=== PATIENT | male | born 1950 | race Caucasian/White ===

== ENCOUNTER → 2024-03-08 | Outpatient (CLI) | payer MEDICARE ==
--- NOTE | 2024-04-02 14:34 | CT ---
Patient: Collin Graves Ordering Physician: Unknown, Unknown ID: [id number] Phone, Pager: Phone: N/A Pager: N/A : 1950 Age/Gender: 73Y, M Primary Location: N/A Procedure: CT brain wo con Study Date: 03/08/2024 3:59:00 PM EXAMINATION TYPE: CT brain wo con CT DLP: 978 mGycm, Automated exposure control for dose reduction was used. DATE OF EXAM: 03/08/2024 5:18 PM COMPARISON: None. CLINICAL INDICATION: Subdural hemorrhage TECHNIQUE: Brain: Axial CT images of the brain were obtained with coronal and sagittal reformats created and rev iewed. Contrast used: None. Oral contrast used: None. FINDINGS: Brain: Extra-axial spaces: Left subdural fluid collection measuring up to 10 mm in greatest dimension. Ventricular system: Within normal limits Cerebral parenchyma: Encephalomalacia the right frontal lobe and left patel-white matter differentiati on of the right temporal lobe most pronounced series 3 image 18. No acute intraparenchymal hemorrhage or mass effect. The patel-white junction is well differentiated. Cerebellum: Unremarkable. Mass effect: No evidence of midline shift. Intracranial vasculature: unremarkable Soft tissues: Normal. Calvarium/osseous structures: No depressed skull fracture. Paranasal sinuses and mastoid air cells: Mild scattered paranasal sinus disease. Visualized orbits: Orbital contents are intact. IMPRESSION: 1. Left subdural hemorrhage measuring up to 10 mm in short axis. No priors available for comparison. No evidence for midline shift at this time. 2. Patel-white matter loss of differentiation in the temporal lobe and right frontal lobe with a beam house inspector hannah appearance. Correlate with patient's history. If this concern for acute/subacute injury correlate with MRI.
== END | disposition home or self-care (01) ==
LOC: RADCTMAIN 14:30
PROVIDERS: ATTEND Psychiatry & Neurology Neurology
DX: I62.00 Nontraumatic subdural hemorrhage, unspecified (principal)
CPT/HCPCS: 70450